=== PATIENT | female | born 1955 | race Caucasian/White ===

== ENCOUNTER 2022-05-26 09:20 | Emergency (ER) | payer OTHER ==
[~2022-05-26] VITALS: Ht 162.6 cm; Wt 56.7 kg
[2022-05-26] MEDS ORDERED: GLUMETZA500 MG PO (09:50)
[2022-05-26] MEDS ORDERED: WELLBUTRIN XL300 MG (09:50)
[2022-05-26] MEDS ORDERED: MEMANTINE HCL10 MG (09:50)
[2022-05-26] MEDS ORDERED: RIVASTIGMINE4.5 MG PO (09:52)
[2022-05-26] MEDS ORDERED: TRADJENTA5 MG (09:53)
[2022-05-26] MEDS ORDERED: CARBIDOPA-LEVO1 EACH (09:54)
[2022-05-26] MEDS ORDERED: ABILIFY5 MG (09:56)
[2022-05-26] MEDS ORDERED: ESCITALOPRAM OX20 MG (09:56)
[2022-05-26] MEDS ORDERED: ADULT LOW DOSE81 M1 (09:57)
== END 2022-05-26 12:34 | disposition home or self-care (01) ==
LOC: ER 09:20
DX: S42.352A Displaced comminuted fracture of shaft of humerus, left arm, initial encounter for closed fracture (principal); W19.XXXA Unspecified fall, initial encounter; Y93.9 Activity, unspecified; Y92.9 Unspecified place or not applicable; Z85.3 Personal history of malignant neoplasm of breast; E11.9 Type 2 diabetes mellitus without complications; Z79.84 Long term (current) use of oral hypoglycemic drugs; G20 Parkinson's disease

== ENCOUNTER 2022-07-07 06:49 | Day surgery (SDC) | payer OTHER ==
[~2022-07-07] VITALS: Ht 162.6 cm; Wt 56.7 kg
[~2022-07-07 06:49] MED LIST: ABILIFY5 MG; ADULT LOW DOSE81 M1; CARBIDOPA-LEVO1 EACH; ESCITALOPRAM OX20 MG; GLUMETZA500 MG PO; LANTUS SOL100 UNIT/1; MEMANTINE HCL10 MG; RIVASTIGMINE4.5 MG PO; RIVASTIGMINE6 MG PO; TRADJENTA5 MG; WELLBUTRIN XL300 MG
== END 2022-07-07 14:40 | disposition home or self-care (01) ==
LOC: CIR.AMB 06:49
PROVIDERS: ATTEND Surgery
DX: D05.11 Intraductal carcinoma in situ of right breast (principal); R92.1 Mammographic calcification found on diagnostic imaging of breast; R59.0 Localized enlarged lymph nodes
CPT/HCPCS: 19301; 38525; 19281; A9541; L8699